=== PATIENT | female | born 1980 | race African-American/Black ===

== ENCOUNTER 2021-11-27 10:07 | Emergency (ER) | payer OTHER ==
[~2021-11-27] VITALS: Ht 165.1 cm; Wt 64.0 kg
[2021-11-27 10:20] VITALS: BP 134/74
[2021-11-27] MEDS ORDERED: CEFTRIAXONE SODIUM 500 MG/VIAL IM ONE (11:00)
[2021-11-27] MEDS ORDERED: AZITHROMYCIN 500 MG TABLET PO ONE (11:00)
[2021-11-27 11:03] LABS: BASOPHILS % 0.8 % (0.0-2.0); EOSINOPHILS % 4.3 % (0.0-5.0); HEMATOCRIT. 40.1 % (36.0-48.0); HEMOGLOBIN. 13.1 g/dL (12.0-16.0); LYMPHOCYTES % 53.6 % (20.0-50.0); MEAN CORPUSCULAR HEMOGLOBIN 30.7 pg (28.0-32.0); MEAN CORPUSCULAR VOLUME 94.1 fL (81.0-99.0); MEAN PLATELET VOLUME 8.4 fl (7.4-10.4); MONOCYTES % 9.1 % (2.0-8.0); NEUTROPHILS % 32.2 % (40.0-76.0); PLATELET 248 x1000/uL (130-400); RED BLOOD CELL COUNT 4.26 mill/uL (4.2-5.4); RED CELL DISTRIBUTION WIDTH 13.9 % (11.6-14.6)
[2021-11-27 11:08] LABS: CHLORIDE 108 mEq/L (98-107)
[2021-11-27 11:22] LABS: HCG SCREEN NEGATIVE
[2021-11-27] MEDS ORDERED: ONDA4TAB11 PO (12:02)
[2021-11-27] MEDS ORDERED: RALT400T MT (12:02)
[2021-11-27] MEDS ORDERED: EMTR1TAB11 MT (12:02)
[2021-11-27] MEDS ORDERED: LEVO1.5T37 MT (12:02)
== END 2021-11-27 12:33 | disposition home or self-care (01) ==
LOC: ER 10:07
DX: T74.21XA Adult sexual abuse, confirmed, initial encounter (principal)
CPT/HCPCS: 36415; 80053; 84703; 85025; 96372; 99283; J0696

== ENCOUNTER 2022-09-04 10:26 | Emergency (ER) | payer OTHER ==
[~2022-09-04] VITALS: Ht 165.1 cm; Wt 57.0 kg
[~2022-09-04 10:26] MED LIST: EMTR1TAB11 MT; LEVO1.5T37 MT; ONDA4TAB11 PO; RALT400T MT
[2022-09-04 10:41] VITALS: BP 122/78
== END 2022-09-04 12:31 | disposition left against medical advice (07) ==
LOC: ER 10:26
DX: Z53.21 Procedure and treatment not carried out due to patient leaving prior to being seen by health care provider (principal)

== ENCOUNTER 2023-07-12 15:36 | Emergency (ER) | payer OTHER ==
[~2023-07-12] VITALS: Ht 170.2 cm; Wt 48.0 kg
[2023-07-12 16:05] VITALS: O2SAT 99
[2023-07-12 20:11] LABS: BASOPHILS % 0.8 % (0.0-2.0); EOSINOPHILS % 3.3 % (0.0-5.0); HEMATOCRIT. 40.1 % (36.0-48.0); HEMOGLOBIN. 13.2 g/dL (12.0-16.0); LYMPHOCYTES % 50.7 % (20.0-50.0); MEAN CORPUSCULAR VOLUME 93.7 fL (81.0-99.0); MEAN PLATELET VOLUME 8.6 fl (7.4-10.4); NEUTROPHILS % 34.2 % (40.0-76.0); PLATELET 298 x1000/uL (130-400); RED BLOOD CELL COUNT 4.28 mill/uL (4.2-5.4); RED CELL DISTRIBUTION WIDTH 14.4 % (11.6-14.6)
[2023-07-12] MEDS ORDERED: OLANZAPINE 10 MG/VIAL IM ONE (20:30)
[2023-07-12 20:33] LABS: ACETAMINOPHEN 4 ug/mL (10-30); ALANINE AMINOTRANSFERASE 7 IU/L (10-49); ALBUMIN 4.5 g/dL (3.2-4.8); ASPARTATE AMINOTRANSFERASE 10 IU/L (<34); BILIRUBIN TOTAL 0.4 mg/dL (0.1-1.0); CALCIUM 9.7 mg/dL (8.7-10.4); CARBON DIOXIDE 29 mEq/L (21-32); CHLORIDE 107 mEq/L (98-107); GLUCOSE 93 mg/dL (70-105); POTASSIUM 3.8 mEq/L (3.5-5.1); PROTEIN TOTAL 7.3 g/dL (6.0-8.3); SODIUM 142 mEq/L (136-145); UREA NITROGEN BLOOD 17 mg/dL (9-23)
[2023-07-12 20:37] LABS: ETHANOL BLOOD < 10 mg/dL (<10)
[2023-07-12 22:39] LABS: CLARITY URINE CLEAR (CLEAR); COLOR URINE YELLOW (YELLOW); GLUCOSE URINE NEGATIVE (NEGATIVE); KETONES URINE TRACE (NEGATIVE); LEUKOCYTE ESTERASE URINE NEGATIVE (NEGATIVE); NITRITE URINE NEGATIVE (NEGATIVE); OCCULT BLOOD URINE NEGATIVE (NEGATIVE); PROTEIN URINE NEGATIVE (NEGATIVE)
[2023-07-12 22:42] LABS: *AMPHETAMINES SCREEN URINE PRESUMPTIVE POSITIVE (NEGATIVE); *BARBITURATES SCREEN URINE NEGATIVE (NEGATIVE); *BENZODIAZEPINES SCREEN URINE NEGATIVE (NEGATIVE); *COCAINE SCREEN URINE NEGATIVE (NEGATIVE); CANNABINOID URINE SCREEN PRESUMPTIVE POSITIVE (NEGATIVE); ECSTASY MDMA SCREEN URINE NEGATIVE (NEGATIVE); METHADONE URINE SCREEN Neg (NEGATIVE); OPIATES URINE SCREEN NEGATIVE (NEGATIVE); PHENCYCLIDINE URINE SCREEN NEGATIVE (NEGATIVE)
[2023-07-13 06:33] VITALS: BP 129/83; PULSE 68; RESP 14; TEMP 98.2
[2023-07-13] MEDS ORDERED: HALOPERIDOL LACTATE 5MG/ML VIAL IM ONE (08:30)
[2023-07-13] MEDS ORDERED: LORAZEPAM 2MG/ML CPJ IM ONE (08:30)
[2023-07-13] MEDS ORDERED: HALOPERIDOL LACTATE 5MG/ML VIAL IM NR (09:45)
[2023-07-13] MEDS ORDERED: OLANZAPINE 5MG TABLET PO SCH (09:45)
[2023-07-13] MEDS ORDERED: LORAZEPAM 4MG/ML VIAL IM NR (09:45)
== END 2023-07-13 10:41 | disposition left against medical advice (07) ==
LOC: ER 15:43
DX: F22 Delusional disorders (principal); Z20.822 Contact with and (suspected) exposure to COVID-19
CPT/HCPCS: 80053; 80305; 81003; 80307; 80329; 80320; 85025; 36415; 96372; 99285; 87426; J3490; C9803; G0480